=== PATIENT | female | born 1945 | race Caucasian/White ===

== ENCOUNTER → 2017-06-06 13:44 | Outpatient (CLI) | payer MEDICARE, OTHER ==
[2014-12-30 07:01] VITALS: BMI 27.1
[~2017-06-06 13:44] MED LIST: ACIPHEX20 MG PO; CO Q-10100 MG; DYAZIDE 37.5/251 CAP PO; FELODIPINE ER10 MG PO; LEVOXYL100 MCG PO; MULTIPLE VITAMI1 TA1 PO; PEPCID20 MG PO; PRAVACHOL20 MG PO; RESTASIS EYE DR30 EA EACH EYE; VITAMIN D31000 UNIT PO
== END | disposition home or self-care (01) ==
LOC: D.MRI 13:44
DX: M54.16 Radiculopathy, lumbar region (principal)